=== PATIENT | male | born 1985 | race Caucasian/White ===

== ENCOUNTER 2022-03-30 09:47 | Emergency (ER) | payer SELFPAY ==
--- OUTSIDE RECORDS SUMMARY | 2022-03-30 09:49 | XMS REPORT | Continuity of Care Document ---
:1985 Author Organization [facility] t Address [address] [place] [address] Care Team Providers Name Role Phone Pcp, Patient Does Not Have A Primary Care Physician [id number] JUAN CARLOS DEE Attending Clinician Unavailable Juan Carlos Dee MD Attending Clinician Problems Condition Condition Condition Status Onset Resolution Last Treating Co mments Source Name Details Category Date Date Treatment Clinician Date No known No known Disease Unive rs active active ity of problems problems [facility] Allergies, Adverse Reactions, Alerts Allergy Allergy Status Severity Reaction(s) Onset Inactive Treating Comm ents Source Name Type Date Date Clinician NO KNOWN Drug Active Univers ALLERGIE Class ity of S [facility] Social History Social Habit Start Date Stop Date Quantity Comments Source Exposure to 2021-11-10 2021-11-20 Unable to assess Univers ity of SARS-CoV-2 00:00:00 17:39:00 [facility] (event) Branch Sex Ass[birth year] Universit y of 00:00:00 00:00:00 [facility] Smoking Status Start Date Stop Date Source Unknown if ever smoked [facility] [place] Medications Ordered Filled Start Stop Current Ordering Indication Dosage Frequency Signature Comments Components Source Medication Medication Date Date Medication? Clinician (SIG) Name Name doxycycline Yes [id number] 100mg Take 1 Univers hyclate 100 7-05 capsule by it y of [place] capsule [place] [facility] times Branch daily. Vital Signs Vital Name Observation Time Observation Value Comments Source Systolic blood 2021-11-20 22:43:00 124 mm[Hg] Univer sity of pressure [facility] Diastolic blood 2021-11-20 22:43:00 76 mm[Hg] Unive rsity of pressure [facility] Heart rate 2021-11-20 22:43:00 88 /min [facility] Body temperature 2021-11-20 22:43:00 37.44 Sofia [facility] Respiratory rate 2021-11-20 22:43:00 18 /min [facility] Body weight 2021-11-20 22:43:00 81.647 kg [facility] Oxygen saturation in 2021-11-20 22:43:00 98 /min [facility] Arterial blood by [facility] Pulse oximetry Branch Procedures This patient has no known procedures. Encounters Start End Encounter Admission Attending Care Care Encounter Source Date/Time Date/Time Type Type Clinicians Facility Department ID 2021-11-20 2021-11-20 Emergency X LEILA [facility] ERT [id number] Univers 17:45:00 18:04:00 JUAN CARLOS shook [facility] 2021-11-20 2021-11-20 Emergency Leila [facility] [id number] Univers 17:45:00 18:04:00 Juan Carlos FELIX [id number] i ty [facility] [id number] [facility] [id number] [facility] 084 Branch Results This patient has no known results.
[2022-03-30] MEDS ORDERED: HYDROCODONE/APAP 10/325 TAB ONE (10:47)
[2022-03-30] MEDS ORDERED: LIDOCAINE 1% 20 ML MDV ONE (10:48)
--- NOTE | 2022-03-30 11:13 | ER ---
Nurse's Notes [facility] Name: Elvin Cope Age: 36 yrs Sex: Male : 1985 Arrival Date: 03/30/2022 Time: 09:51 Bed 9 Private MD: Diagnosis: Cutaneous abscess, unspecified Presentation: 03/30 09:58 Chief complaint: Patient states: Lump to left side of neck x 13 years, lump started jl7 with pain. oozing and with odor x 2 weeks. Coronavirus screen: Vaccine status: Patient reports being unvaccinated. At this time, the client does not indicate any symptoms associated with coronavirus-19. Ebola Screen: No symptoms or risks identified at this time. Initial Sepsis Screen: Does the patient meet any 2 criteria? HR > 90 bpm. No. Patient's initial sepsis screen is negative. Does the patient have a suspected source of infection? No. Patient's initial sepsis screen is negative. Risk Assessment: Do you want to hurt yourself or someone else? Patient reports no desire to harm self or others. Onset of symptoms was 2008. 09:58 Method Of Arrival: Ambulatory [facility] 09:58 Acuity: DEBBIE 3 jl7 Triage Assessment: 10:01 General: Appears in no apparent distress. uncomfortable, Behavior is calm, cooperative, jl7 appropriate for age. Pain: Complains of pain in left lateral aspect of neck Pain currently is 7 out of 10 on a pain scale. Historical: - Allergies: 10:01 No Known Allergies; jl7 - Home Meds: 10:01 None [Active]; jl7 - PMHx: 10:01 None; jl7 - PSHx: 10:01 None; jl7 - Immunization history:: Adult Immunizations not up to date, Last tetanus immunization: unknown. - Social history:: Smoking status: Patient reports the use of cigarette tobacco products, smokes one pack cigarettes per day. Patient uses street drugs, marijuana. Screenin:16 Abuse screen: Denies threats or abuse. Nutritional screening: No deficits noted. mb9 Tuberculosis screening: No symptoms or risk factors identified. Fall Risk None identified. Assessment: 10:35 General: Appears uncomfortable, Behavior is calm, cooperative, appropriate for age. mb9 Pain: Complains of pain in left lateral aspect of neck Pain radiates to shoulder Pain currently is 7 out of 10 on a pain scale. Quality of pain is described as aching, sharp, Aggravated by increased activity, repositioning. Neuro: Level of Consciousness is awake, alert, obeys commands, Oriented to person, place, time, situation, Appropriate for age. Cardiovascular: Heart tones S1 S2 present Rhythm is regular. Cardiovascular:. Respiratory: Airway is patent Respiratory effort is even, unlabored, Respiratory pattern is regular, symmetrical, Breath sounds are clear bilaterally. GI: Abdomen is flat, Bowel sounds present X 4 quads. : No signs and/or symptoms were reported regarding the genitourinary system. EENT:. EENT:. EENT: No signs and/or symptoms were reported regarding the EENT system. Derm: Abscess located on left lateral aspect of neck is golf ball sized, has foul odor, is red, is raised. Musculoskeletal: Range of motion: intact in all extremities. 11:27 Reassessment: No changes from previously documented assessment. mb9 Vital Signs: 09:58 BP 136 / 83; Pulse 99; Resp 17; Temp 99.4; Pulse Ox 100% on R/A; Weight 81.65 kg; jl7 Height 5 ft. 11 in. (180.34 cm); Pain 7/10; 11:27 BP 130 / 80; Pulse 85; Resp 18; Pulse Ox 100% ; mb9 09:58 Body Mass Index 25.10 (81.65 kg, 180.34 cm) jl7 ED Course: 09:51 Patient arrived in ED. am2 09:52 [facility] jl[facility] 09:52 Yadira Garza MD is Attending Physician. jl9 10:01 Triage completed. jl7 10:01 Arm band placed on right wrist. jl7 10:01 Bed in low position. Call light in reach. Side rails up X 1. mb9 10:05 Dot Engle RN is Primary Nurse. mb9 11:00 Assist provider with I \T\ D: of an abscess on Set up I\T\D tray. Performed by Jason glez 9 Culture sent to lab. Patient tolerated well. 11:16 Wound Culture Sent. mb9 11:27 Patient did not have IV access during this emergency room visit. mb9 Administered Medications: 10:55 Drug: [place] (HYDROcodone-acetaminophen) 10 mg-325 mg 1 tabs Route: PO; mb9 11:28 Follow up: Response: No adverse reaction mb9 11:13 Drug: Lidocaine (1 %) 20 ml Volume: 20 ml; Route: Infiltration; mb9 11:28 Follow up: Response: No adverse reaction mb9 Medication: 11:16 VIS not applicable for this client. mb9 Outcome: 11:12 Discharge ordered by . jl9 11:27 Discharged to home ambulatory. mb9 11:27 Condition: stable 11:27 Discharge instructions given to patient, Instructed on discharge instructions, follow up and referral plans. Demonstrated understanding of instructions, follow-up care, medications, Prescriptions given X 1. 11:27 Patient left the ED. mb9 Signatures: Oneyda Douglas RN RN jl7 Leigha Sarmiento John jl9 Dot Engle RN RN mb9
--- NOTE | 2022-03-30 11:13 | EDPHYS ---
Physician Documentation [facility] Name: Elvin Cope Age: 36 yrs Sex: Male : 1985 Arrival Date: 03/30/2022 Time: 09:51 Bed 9 Private MD: ED Physician Yadira Garza HPI: 03/30 11:08 This 36 yrs old Male presents to ER via Ambulatory with complaints of abscess jl9 to left side of neck x2 weeks. . 11:08 The patient or guardian complains of swelling, tenderness. The symptoms are located jl9 Left lateral neck. Onset: The symptoms/episode began/occurred 2 week(s) ago. Associated signs and symptoms: The patient has no apparent associated signs or symptoms. The pain does not radiate. Severity of symptoms: in the emergency department the symptoms a " 4" out of "10". Historical: - Allergies: 10:01 No Known Allergies; jl7 - Home Meds: 10:01 None [Active]; jl7 - PMHx: 10:01 None; jl7 - PSHx: 10:01 None; jl7 - Immunization history:: Adult Immunizations not up to date, Last tetanus immunization: unknown. - Social history:: Smoking status: Patient reports the use of cigarette tobacco products, smokes one pack cigarettes per day. Patient uses street drugs, marijuana. ROS: 11:09 Constitutional: Negative for fever, chills, and weight loss, Eyes: Negative for injury, jl9 pain, redness, and discharge, ENT: Negative for injury, pain, and discharge, Cardiovascular: Negative for chest pain, palpitations, and edema, Respiratory: Negative for shortness of breath, cough, wheezing, and pleuritic chest pain. 11:09 Abdomen/GI: Negative for abdominal pain, nausea, vomiting, diarrhea, and constipation, Back: Negative for injury and pain, : Negative for injury, bleeding, discharge, and swelling, MS/Extremity: Negative for injury and deformity, Skin: Negative for injury, rash, and discoloration, Neuro: Negative for headache, weakness, numbness, tingling, and seizure, Psych: Negative for depression, anxiety, suicide ideation, homicidal ideation, and hallucinations, Allergy/Immunology: Negative for hives, rash, and allergies, Endocrine: Negative for neck swelling, polydipsia, polyuria, polyphagia, and marked weight changes, Hematologic/Lymphatic: Negative for swollen nodes, abnormal bleeding, and unusual bruising. 11:09 Neck: Positive for 3x3cm abscess to left neck. . Exam: 11:09 Constitutional: This is a well developed, well nourished patient who is awake, alert, jl9 and in no acute distress. Head/Face: Normocephalic, atraumatic. Eyes: Pupils equal round and reactive to light, extra-ocular motions intact. Lids and lashes normal. Conjunctiva and sclera are non-icteric and not injected. Cornea within normal limits. Periorbital areas with no swelling, redness, or edema. ENT: Mucous membranes moist. 11:09 Chest/axilla: Normal chest wall appearance and motion. Nontender with no deformity. No lesions are appreciated. Cardiovascular: Regular rate and rhythm with a normal S1 and S2. No gallops, murmurs, or rubs. Normal PMI, no JVD. No pulse deficits. Respiratory: Lungs have equal breath sounds bilaterally, clear to auscultation and percussion. No rales, rhonchi or wheezes noted. No increased work of breathing, no retractions or nasal flaring. Abdomen/GI: Soft, non-tender, with normal bowel sounds. No distension or tympany. No guarding or rebound. No evidence of tenderness throughout. Back: No spinal tenderness. No costovertebral tenderness. Full range of motion. Skin: Warm, dry with normal turgor. Normal color with no rashes, no lesions, and no evidence of cellulitis. MS/ Extremity: Pulses equal, no cyanosis. Neurovascular intact. Full, normal range of motion. Neuro: Awake and alert, GCS 15, oriented to person, place, time, and situation. Cranial nerves II-XII grossly intact. Motor strength 5/5 in all extremities. Sensory grossly intact. Cerebellar exam normal. Normal gait. Psych: Awake, alert, with orientation to person, place and time. Behavior, mood, and affect are within normal limits. 11:09 Neck: External neck: erythema, swelling, tenderness. Vital Signs: 09:58 BP 136 / 83; Pulse 99; Resp 17; Temp 99.4; Pulse Ox 100% on R/A; Weight 81.65 kg; jl7 Height 5 ft. 11 in. (180.34 cm); Pain 7/10; 11:27 BP 130 / 80; Pulse 85; Resp 18; Pulse Ox 100% ; mb9 09:58 Body Mass Index 25.10 (81.65 kg, 180.34 cm) jl7 Procedures: 11:10 I \\T\\ D: Incision and drainage was performed for an abscess of the left Prepped with jl9 Betadine, Anesthetized with 5 ml's 1% Lidocaine. Incised with #11 blade. Drained moderate amount serosanguinous fluid. Packed with Dressing: sterile 4x4 gauze, the patient tolerated the procedure. MDM: 10:03 Patient medically screened. jl9 11:10 Data reviewed: vital signs, nurses notes. Counseling: I had a detailed discussion with jl9 the patient and/or guardian regarding: the historical points, exam findings, and any diagnostic results supporting the discharge/admit diagnosis, the need for outpatient follow up, to return to the emergency department if symptoms worsen or persist or if there are any questions or concerns that arise at home. 03/30 10:20 Order name: Wound Culture 9 03/30 10:20 Order name: I\\T\\D Setup; Complete Time: 10:55 jl9 Administered Medications: 10:55 Drug: [place] (HYDROcodone-acetaminophen) 10 mg-325 mg 1 tabs Route: PO; mb9 11:28 Follow up: Response: No adverse reaction mb9 11:13 Drug: Lidocaine (1 %) 20 ml Volume: 20 ml; Route: Infiltration; mb9 11:28 Follow up: Response: No adverse reaction mb9 Disposition: 15:33 STAFF ATTESTATION STATEMENT: I was immediately available onsite in the emergency sd2 department for consultation in the care of this patient. I did not see or examine this patient. Yadira Garza MD. Disposition Summary: 03/30/22 11:12 Discharge Ordered Location: Home jl9 Condition: Stable jl9 Diagnosis - Cutaneous abscess, unspecified jl9 Followup: jl9 - With: Private Physician - When: 1 - 2 days - Reason: Recheck today's complaints, Continuance of care, Re-evaluation by your physician Discharge Instructions: - Discharge Summary Sheet jl9 - Skin Abscess, [id number] jl9 - Incision and Drainage, Care After jl9 Forms: - Medication Reconciliation Form jl9 - Thank You Letter jl9 - Antibiotic Education jl9 - Prescription Opioid Use jl9 Prescriptions: - Clindamycin HCl 300 mg Oral Capsule - take 1 capsule by ORAL route every 6 hours for 10 days; 40 capsule; Refills: 0, jl9 Product Selection Permitted Signatures: Dispatcher [employer] Oneyda Vang RN RN jl7 Jason Negrete9 Yadira Garza MD MD sd2 Dot Engle RN RN mb9
[2022-03-30 11:46] VITALS: TEMP 99.4; O2SAT 100
[2022-03-30 11:47] VITALS: BP 130/80
== END 2022-03-30 11:27 | disposition home or self-care (01) ==
LOC: ER 09:47
PROC: 0H94XZZ Drainage of Neck Skin, External Approach (ICD-10-PCS; principal; 2022-03-30)
DX: L02.11 Cutaneous abscess of neck (principal)
CPT/HCPCS: 87070; 87205; 99284

== ENCOUNTER 2023-10-12 21:21 | Emergency (ER) | payer BC, SELFPAY ==
[2023-10-12] MEDS ORDERED: BUPIVACAINE 0.5% PF 10 ML VIAL ONE (22:09)
[2023-10-12] MEDS ORDERED: LIDOCAINE 1% 20 ML MDV ONE (22:09)
--- NOTE | 2023-10-12 23:18 | ER ---
Nurse's Notes [facility] Name: Elvin Cope Age: 38 yrs Sex: Male : 1985 Arrival Date: 10/12/2023 Time: 21:21 Bed 9 Private MD: Diagnosis: Laceration without foreign body of left index finger without damage to nail Presentation: 10/11 21:33 Chief complaint: Patient states: pt cut his left index finger with a meat betty. as6 Coronavirus screen: At this time, the client does not indicate any symptoms associated with coronavirus-19. Ebola Screen: No symptoms or risks identified at this time. Initial Sepsis Screen: Does the patient meet any 2 criteria? No. Patient's initial sepsis screen is negative. Does the patient have a suspected source of infection? No. Patient's initial sepsis screen is negative. Risk Assessment: Do you want to hurt yourself or someone else? Patient reports no desire to harm self or others. Onset of symptoms was October 12, 2023. 21:33 Acuity: DEBBIE 4 as6 21:33 Method Of Arrival: Ambulatory as6 23:34 Complicating Factors: There are no complicating factors for this patient. eb1 Triage Assessment: 23:33 General: Appears in no apparent distress. comfortable, well groomed, well developed, eb1 well nourished, Behavior is calm, cooperative, appropriate for age. Pain: Complains of pain in dorsal aspect of distal phalanx of left index finger. Injury Description: Laceration sustained to dorsal aspect of distal phalanx of left index finger is clean. Historical: - Allergies: 21:33 No Known Allergies; as6 - PMHx: 21:33 None; as6 - PSHx: 21:33 None; as6 - Immunization history:: Last tetanus immunization: < 5 years ago. - Infectious Disease History:: Denies. - Social history:: Smoking status: Patient reports the use of cigarette tobacco products, smokes one pack cigarettes per day. Screenin:33 Abuse screen: Denies threats or abuse. Denies injuries from another. Nutritional eb1 screening: No deficits noted. Tuberculosis screening: No symptoms or risk factors identified. Assessment: 22:50 General: Appears in no apparent distress. comfortable, well groomed, well developed, eb1 well nourished, Behavior is calm, cooperative, appropriate for age. Pain: Complains of pain in dorsal aspect of distal phalanx of left index finger. Neuro: No deficits noted. Cardiovascular: No deficits noted. Respiratory: No deficits noted. GI: No deficits noted. No signs and/or symptoms were reported involving the gastrointestinal system. : No deficits noted. No signs and/or symptoms were reported regarding the genitourinary system. EENT: No deficits noted. No signs and/or symptoms were reported regarding the EENT system. Derm: No deficits noted. No signs and/or symptoms reported regarding the dermatologic system. Injury Description: Laceration sustained to dorsal aspect of distal phalanx of left index finger, palmar aspect of distal phalanx of left index finger and left index fingernail. 23:15 Reassessment: Patient appears in no apparent distress at this time. No changes from eb1 previously documented assessment. Patient and/or family updated on plan of care and expected duration. Pain level reassessed. Patient states feeling better. 23:34 Musculoskeletal: No deficits noted. No signs and/or symptoms reported regarding the eb1 musculoskeletal system. Vital Signs: 21:33 BP 109 / 63; Pulse 88; Resp 18; Temp 97.3; Pulse Ox 99% ; Weight 77.11 kg; Height 5 ft. as6 11 in. ; Pain 5/10; 21:33 Body Mass Index 23.71 (77.11 kg, 180.34 cm) as6 21:33 Pain Scale: Adult as6 ED Course: 21:25 Patient arrived in ED. gm2 21:28 Calli Dominguez [facility]-C [facility] ec[facility] 21:28 Demarcus Leavitt MD is Attending Physician. ec2 21:33 Arm band placed on. as6 21:35 Triage completed. as6 23:34 No provider procedures requiring assistance completed. Patient did not have IV access eb1 during this emergency room visit. 23:35 Patient has correct armband on for positive identification. Bed in low position. Call eb1 light in reach. Side rails up X 1. Administered Medications: 22:42 Drug: Bupivacaine Infiltration (0.5 %) 1 vials 10 ml Infiltration once Volume: 10 ml; eb1 Route: Infiltration; 23:35 Follow up: Response: No adverse reaction eb1 22:42 Drug: Lidocaine Infiltration (1 %) 1 vials 5 ml Infiltration once; to bedside Volume: 5 eb1 ml; Route: Infiltration; Site: affected area; 23:35 Follow up: Response: No adverse reaction eb1 Medication: 23:35 VIS not applicable for this client. eb1 Outcome: 23:18 Discharge ordered by . yair 23:34 Discharged to home with significant other, eb1 23:34 Condition: good 23:34 Discharge instructions given to patient, Instructed on discharge instructions, follow up and referral plans. Demonstrated understanding of instructions, follow-up care, medications, Prescriptions given X 1, 23:37 Patient left the ED. eb1 Signatures: Calli Dominguez, JACKELINC TAMI-Lynne Schafer RN RN eb1 Tyrone Garrison RN RN as6 Demarcus Leavitt MD MD 2 Kaci Taylor 2
--- NOTE | 2023-10-12 23:19 | EDPHYS ---
Physician Documentation [facility] Name: Elvin Cope Age: 38 yrs Sex: Male : 1985 Arrival Date: 10/12/2023 Time: 21:21 Bed 9 Private MD: ED Physician Demarcus Leavitt HPI: 10/11 23:17 This 38 yrs old Male presents to ER via Ambulatory with complaints of Laceration To kb Hand. 23:17 Patient is a 38-year-old male who was using a knife to cut the fell off of a turtle kb that his son caught when he cut his left index finger. Denies any other injury. Full range of motion.. Historical: - Allergies: 21:33 No Known Allergies; as6 - PMHx: 21:33 None; as6 - PSHx: 21:33 None; as6 - Immunization history:: Last tetanus immunization: < 5 years ago. - Infectious Disease History:: Denies. - Social history:: Smoking status: Patient reports the use of cigarette tobacco products, smokes one pack cigarettes per day. ROS: 23:15 Constitutional: As per HPI kb Exam: 23:15 Constitutional: This is a well developed, well nourished patient who is awake, alert, kb and in no acute distress. Head/Face: Normocephalic, atraumatic. ENT: Moist Mucous membranes Cardiovascular: Regular rate Respiratory: Respirations even and unlabored. No increased work of breathing. Talking in full sentences MS/ Extremity: Pulses equal, no cyanosis. Neurovascular intact. Full, normal range of motion. Neuro: Awake and alert, GCS 15, oriented to person, place, time, and situation. Moves all extremities. Normal gait. 23:15 Skin: injury, laceration(s), the wound is approximately 3 cm(s), of the palmar aspect of distal phalanx of left index finger, that can be described as clean, no foreign body, linear, without bleeding, Vital Signs: 21:33 BP 109 / 63; Pulse 88; Resp 18; Temp 97.3; Pulse Ox 99% ; Weight 77.11 kg; Height 5 ft. as6 11 in. ; Pain 5/10; 21:33 Body Mass Index 23.71 (77.11 kg, 180.34 cm) as6 21:33 Pain Scale: Adult as6 Procedures: 23:16 Nerve block: (digital) of palmar aspect of proximal phalanx of left index finger kb Medication: Lidocaine 1% without epinephrine Marcaine 0.5%, Amount: 3 mls were injected, Effect: the patient has resolution of the pain, Set up for procedure. Performed by Calli MORAN Patient tolerated well. Laceration: 23:15 Wound Repair of 3cm ( 1.2in ) subcutaneous laceration to palmar aspect of distal kb phalanx of left index finger. Skin/tissue flap noted.. Distal neuro/vascular/tendon intact. Anesthesia: Digital block administered with 1% lidocaine, Local anesthetic administered with 3 mls of Lido/Marcaine. Wound prep: Extensive cleansing with hibiclenz by me, Wound irrigation with saline by me. Skin closed with 5 5-0 Prolene using simple sutures and sterile technique. Patient tolerated well. MDM: 21:33 Patient medically screened. kb 23:15 Data reviewed: vital signs, nurses notes. kb 23:16 Differential diagnosis: superficial laceration, tendon injury, vascular injury. Test kb considered but Not performed: X-ray: X-ray considered but patient has full range of motion with no bony tenderness. Counseling: I had a detailed discussion with the patient and/or guardian regarding the historical points, exam findings, and any diagnostic results supporting the discharge/admit diagnosis, the need for outpatient follow up, a family practitioner, to return to the emergency department if symptoms worsen or persist or if there are any questions or concerns that arise at home. 10/11 22:07 Order name: Dressing - Wound; Complete Time: 22:42 kb 10/11 22:07 Order name: Gloves, Sterile; Complete Time: 22:42 kb 10/11 22:07 Order name: Prolene, Sutures; Complete Time: 22:42 kb 10/11 22:07 Order name: Setup Suture Tray; Complete Time: 22:42 kb Administered Medications: 22:42 Drug: Bupivacaine Infiltration (0.5 %) 1 vials 10 ml Infiltration once Volume: 10 ml; eb1 Route: Infiltration; 23:35 Follow up: Response: No adverse reaction eb1 22:42 Drug: Lidocaine Infiltration (1 %) 1 vials 5 ml Infiltration once; to bedside Volume: 5 eb1 ml; Route: Infiltration; Site: affected area; 23:35 Follow up: Response: No adverse reaction eb1 Disposition Summary: 10/12/23 23:18 Discharge Ordered Condition: Stable kb Diagnosis - Laceration without foreign body of left index finger without damage to nail kb Followup: kb - With: Private Physician - When: 2 - 3 days - Reason: Recheck today's complaints, Continuance of care, Re-evaluation by your physician Followup: kb - With: Emergency Department - When: As needed - Reason: Worsening of condition Discharge Instructions: - Discharge Summary Sheet kb - Laceration Care, Adult, [id number] kb Forms: - Medication Reconciliation Form kb - Antibiotic Education kb - Prescription Opioid Use kb - Patient Portal Instructions kb - Leadership Thank You Letter kb Prescriptions: - Cephalexin 500 mg Oral Capsule - take 1 capsule ORAL route every 8 hours for 10 days; 30 capsule; Refills: 0, kb Product Selection Permitted Addendum: 10/14/2023 05:39 I was immediately available for consultation during this patient's visit. I did not e c2 personally see the patient or discuss the patient with the KWAME. . Signatures: Calli Dominguez, TAMI-C TAMI-Lynne Schafer, RN RN eb1 Tyrone Garrison, CHAUNCEY RN as6 Demarcus Leavitt MD MD ec2
[2023-10-13 00:09] VITALS: BP 109/63; TEMP 97.3; O2SAT 99
== END 2023-10-12 23:37 | disposition home or self-care (01) ==
LOC: ER 21:21
PROC: 0HQGXZZ Repair Left Hand Skin, External Approach (ICD-10-PCS; principal; 2023-10-12)
DX: S61.211A Laceration without foreign body of left index finger without damage to nail, initial encounter (principal)
CPT/HCPCS: 64450; 99283; 12002; J2001